=== PATIENT | female | born 1975 | race Hispanic/Latino ===

== ENCOUNTER 2017-06-16 14:42 | Emergency (ER) | payer BC, SELFPAY ==
[2017-06-16] MEDS ORDERED: ISOVUE-370 76%-LOCM 1 ML ONE (16:19)
[2017-06-16] MEDS ORDERED: Ketorolac Tromethamine 60 MG/2 ML VIAL ONE (18:20)
[2017-06-16] MEDS ORDERED: Clindamycin/D5W 900 mg/50 ml Premix Bag ONE (18:54)
[2017-06-16 19:11] LABS: #Eosinphils 0.3 thou/uL (0.0-0.7); #Lymphocytes 2.2 thou/uL (1.20-3.40); #Monocytes 0.9 thou/uL (0.11-0.59); %Basophils 0.2 % (0.0-1.0); %Eosinophils 3.3 % (0.0-10.0); %Lymphocytes 26.7 % (21.0-51.0); %Monocytes 10.4 % (0.0-10.0); Mean Platelet Volume 11.7 fL (7.4-10.4); White Blood Cell (WBC) Count 8.3 thou/uL (4.8-10.8)
[2017-06-16 19:27] LABS: ALT (SGPT) 18 U/L (8-55); AST (SGOT) 25 U/L (5-34); Alkaline Phosphatase 84 U/L (40-150); Anion Gap 16 mmol/L (10-20); BUN (Urea Nitrogen) 12 mg/dL (7.0-18.7); Bilirubin, Total 0.3 mg/dL (0.2-1.2); Calc. Creatinine Clearance 0 mL/min (70-130); Calcium 8.6 mg/dL (7.8-10.44); Carbon Dioxide 20 mmol/L (22-29); Chloride 106 mmol/L (98-107); Estimated GFR-MDRD Greater than 90; Globulin 4.3 g/dL (2.4-3.5); Protein, Total 7.9 g/dL (6.0-8.3)
[2017-06-16 19:31] LABS: Anisocytosis SLIGHT = 6-15 cells (100X) (0-5/hpf); Elliptocytes SLIGHT = 2-5 cells (100X) (0-1/hpf); Hypochromia SLIGHT = 6-15 cells (100X) (0-5/hpf); Microcytosis MODERATE=15-30 cells (100X) (0-5/hpf); Ovalocytes SLIGHT = 2-5 cells (100X) (0-1/hpf); Polychromasia SLIGHT = 2-3 cells (100X) (0-2/hpf); Target Cells SLIGHT = 2-5 cells (100X) (0-1/hpf)
--- NOTE | 2017-06-16 20:15 | CT ---
CT OF THE FACE WITH IV CONTRAST 06/16/17 INDICATION: Upper dental pain with right upper jaw and facial swelling for 24 hours. History of "bad teeth" with inability to receive dental care due to monetary reasons. FINDINGS: No drainable fluid collection is evident. There is periorbital soft tissue swelling that is presepta l in nature. The post septal retro-orbital fat is normal appearing. The globe is intact. The extraoc ular muscles appear within normal limits. There is soft tissue swelling involving the right cheek as well as the right upper lip. There is periodontal lucency involving both paracentral incisors suspi cious for periodontal disease. There is extensive dental caries suspected involving the molars of th e maxilla as well as the mandibular region. There are mucous retention cysts within both maxillary s inuses. Ethmoid air cells are clear. Frontal sinuses are clear. Mastoid air cells are clear. The vis ualized intracranial contents appear within normal limits. Certified Physician Assistant space, parapharyngeal space ap pears within normal limits. IMPRESSION: 1. Right periorbital and right facial cellulitis without evidence of a drainable fluid collecti on. 2. No post septal enhancement is evident to suggest retro-orbital cellulitis. 3. Extensive dental caries of the teeth of the maxilla and mandible. 4. Mild paranasal sinus disease. POS: [facility]
== END 2017-06-16 20:06 | disposition home or self-care (01) ==
LOC: ERS 14:42
DX: L03.213 Periorbital cellulitis (principal); K02.9 Dental caries, unspecified; K03.81 Cracked tooth
CPT/HCPCS: 36415; 70487; 80053; 85025; 87040; 96365; 96372; J1885; J3490

== ENCOUNTER 2017-08-22 05:17 | Emergency (ER) | payer BC, SELFPAY ==
[2017-08-22] MEDS ORDERED: Ibuprofen 800 MG TAB ONE (05:32)
[2017-08-22] MEDS ORDERED: Albuterol Sulfate 2.5 mg/3 ml Neb ONE (05:35)
[2017-08-22] MEDS ORDERED: Albuterol Sulfate 2.5 mg/0.5 ml Neb ONE (05:35)
--- NOTE | 2017-08-22 07:43 | RAD ---
PA AND LATERAL OF THE CHEST: INDICATION: Cough and congestion for 1 week without fever. COMPARISON: Prior exam dated 09/20/16. FINDINGS: Lungs are clear. Cardiomediastinal silhouette is normal. No acute osseous abnormality is evident. IMPRESSION: No acute cardiopulmonary abnormality. POS: [facility]
== END 2017-08-22 06:26 | disposition home or self-care (01) ==
LOC: ERS 05:17
DX: J06.9 Acute upper respiratory infection, unspecified (principal); R06.2 Wheezing
CPT/HCPCS: 71046; 94640; J7611

== ENCOUNTER 2017-10-10 08:05 | Emergency (ER) | payer BC | END 2017-10-10 08:58 | disposition home or self-care (01) | LOC: ERS 08:05 | DX: K02.9 Dental caries, unspecified (principal) | CPT/HCPCS: 99282 ==

== ENCOUNTER 2019-04-24 06:46 | Emergency (ER) | payer BC | END 2019-04-24 07:49 | disposition home or self-care (01) | LOC: ERS 06:46 | DX: R05 Cough (principal); R09.81 Nasal congestion; R50.9 Fever, unspecified; F17.210 Nicotine dependence, cigarettes, uncomplicated | CPT/HCPCS: 87804; 99283 ==

== ENCOUNTER 2019-07-25 12:55 | Emergency (ER) | payer BC, SELFPAY ==
--- NOTE | 2019-07-25 13:37 | RAD ---
Exam:3 views right ankle HISTORY: Injury. Pain. COMPARISON: None FINDINGS: Lateral soft tissue swelling. Joint spaces are preserved. No fracture. IMPRESSION: Soft tissue swelling, without evidence of fracture
== END 2019-07-25 15:00 | disposition home or self-care (01) ==
LOC: ERS 12:55
DX: S93.401A Sprain of unspecified ligament of right ankle, initial encounter (principal); F17.210 Nicotine dependence, cigarettes, uncomplicated; Z79.51 Long term (current) use of inhaled steroids; W01.0XXA Fall on same level from slipping, tripping and stumbling without subsequent striking against object, initial encounter

== ENCOUNTER 2020-12-05 04:20 | Emergency (ER) | payer BC, SELFPAY ==
[2020-12-05 11:37] LABS: SARS-CoV-2 PCR by NAA Not Detected (NotDetected)
== END 2020-12-05 06:10 | disposition home or self-care (01) ==
LOC: ERS 04:20
DX: B34.9 Viral infection, unspecified (principal); Z20.822 Contact with and (suspected) exposure to COVID-19; F17.210 Nicotine dependence, cigarettes, uncomplicated
CPT/HCPCS: 87635; 99283; U0003; U0005

== ENCOUNTER 2020-12-08 08:25 | Emergency (ER) | payer BC | END 2020-12-08 08:57 | disposition home or self-care (01) | LOC: ERS 08:25 | DX: L03.211 Cellulitis of face (principal); K02.9 Dental caries, unspecified; K03.81 Cracked tooth; F17.210 Nicotine dependence, cigarettes, uncomplicated | CPT/HCPCS: 99283 ==

== ENCOUNTER 2021-04-21 15:18 | Emergency (ER) | payer BC ==
[~2021-04-21 15:18] MED LIST: Iopamidol-370 76% 500 ML 1 ML ONE
[2021-04-21 15:37] LABS: #Eosinphils 0.1 thou/uL (0.0-0.7); #Lymphocytes 1.8 thou/uL (1.20-3.40); #Monocytes 0.5 thou/uL (0.11-0.59); #Neutrophils 5.4 thou/uL (1.40-6.50); %Basophils 0.2 % (0.0-1.0); %Lymphocytes 23.5 % (21.0-51.0); %Monocytes 5.9 % (0.0-10.0); %Neutrophils 69.5 % (42.0-75.0); Hemoglobin 10.4 g/dL (12.0-16.0); Mean Corpuscular Hemoglobin 22.2 pg (27.0-31.0); Mean Corpuscular Volume 69.3 fL (78.0-98.0); Platelet Count 295 thou/uL (130-400); Red Blood Cell (RBC) Count 4.69 mill/uL (4.20-5.40); White Blood Cell (WBC) Count 7.8 thou/uL (4.8-10.8)
[2021-04-21 15:47] LABS: Prothrombin Time 12.8 sec (12.0-14.7)
[2021-04-21 15:57] LABS: ALT (SGPT) 19 U/L (8-55); AST (SGOT) 17 U/L (5-34); Albumin 3.7 g/dL (3.5-5.0); Alkaline Phosphatase 95 U/L (40-110); Anion Gap 15 mmol/L (10-20); BUN (Urea Nitrogen) 15 mg/dL (7.0-18.7); Bilirubin, Total 0.3 mg/dL (0.2-1.2); Calc. Creatinine Clearance 0 mL/min (70-130); Calcium 9.6 mg/dL (7.8-10.44); Carbon Dioxide 21 mmol/L (22-29); Chloride 110 mmol/L (98-107); Globulin 3.6 g/dL (2.4-3.5); Glucose 122 mg/dL (70-105); Potassium 3.5 mmol/L (3.5-5.1); Protein, Total 7.3 g/dL (6.0-8.3); Sodium 142 mmol/L (136-145)
[2021-04-21 15:59] LABS: Anisocytosis SLIGHT = 6-15 cells (100X) (0-5/hpf); Hypochromia SLIGHT = 6-15 cells (100X) (0-5/hpf); MDiff Complete? YES; Microcytosis SLIGHT = 6-15 cells (100X) (0-5/hpf); Platelet Morphology Comment Appears Adequate; Polychromasia SLIGHT = 2-3 cells (100X) (0-2/hpf)
[2021-04-21 17:02] LABS: Amphetamine Detected (NotDetected); Barbiturates Screen Not Detected (NotDetected); Benzodiazepine Screen Not Detected (NotDetected); Cocaine Metabolite Screen Not Detected (NotDetected); Methadone Not Detected (NotDetected); Methamphetamine Detected (NotDetected); Opiate Screen Not Detected (NotDetected); Oxycodone Screen Not Detected (NotDetected); Phencyclidine (PCP) Not Detected (NotDetected); THC/Cannabinoid Screen Not Detected (NotDetected); Tricyclic Screen Not Detected (NotDetected)
[2021-04-21] MEDS ORDERED: Acetaminophen 500 MG TAB ONE (21:09)
== END 2021-04-21 16:39 | disposition left against medical advice (07) ==
LOC: ERS 15:18
DX: Z53.21 Procedure and treatment not carried out due to patient leaving prior to being seen by health care provider (principal)
CPT/HCPCS: 70450; 70496; 70498; 71045; 80053; 80306; 84484; 85025; 85610; 85730; 93005

== ENCOUNTER 2021-04-21 17:15 | Emergency (ER) | payer BC ==
[2021-04-21 19:01] LABS: #Eosinphils 0.1 thou/uL (0.0-0.7); #Lymphocytes 1.5 thou/uL (1.20-3.40); #Monocytes 0.6 thou/uL (0.11-0.59); #Neutrophils 4.9 thou/uL (1.40-6.50); %Basophils 0.3 % (0.0-1.0); %Eosinophils 1.1 % (0.0-10.0); %Lymphocytes 21.4 % (21.0-51.0); %Neutrophils 69.3 % (42.0-75.0); Hemoglobin 9.4 g/dL (12.0-16.0); Mean Corpuscular HGB CONC 32.1 g/dL (32.0-36.0); Mean Corpuscular Hemoglobin 22.2 pg (27.0-31.0); Mean Platelet Volume 10.4 fL (7.4-10.4); Platelet Count 257 thou/uL (130-400); RBC Distribution Width 18.1 % (11.5-14.5); Red Blood Cell (RBC) Count 4.25 mill/uL (4.20-5.40); White Blood Cell (WBC) Count 7.1 thou/uL (4.8-10.8)
[2021-04-21 19:27] LABS: ALT (SGPT) 19 U/L (8-55); AST (SGOT) 16 U/L (5-34); Albumin 3.4 g/dL (3.5-5.0); Alkaline Phosphatase 80 U/L (40-110); Anion Gap 11 mmol/L (10-20); BUN (Urea Nitrogen) 16 mg/dL (7.0-18.7); Bilirubin, Total 0.2 mg/dL (0.2-1.2); Calc. Creatinine Clearance 0 mL/min (70-130); Calcium 8.8 mg/dL (7.8-10.44); Carbon Dioxide 22 mmol/L (22-29); Chloride 109 mmol/L (98-107); Globulin 3.2 g/dL (2.4-3.5); Glucose 102 mg/dL (70-105); Potassium 3.6 mmol/L (3.5-5.1); Protein, Total 6.6 g/dL (6.0-8.3); Sodium 138 mmol/L (136-145)
== END 2021-04-21 21:27 | disposition home or self-care (01) ==
LOC: ERS 17:15 → EEVIPCON 17:15 → ERS 21:27
DX: F15.10 Other stimulant abuse, uncomplicated (principal); F98.5 Adult onset fluency disorder; D64.9 Anemia, unspecified; M10.9 Gout, unspecified; R47.1 Dysarthria and anarthria
CPT/HCPCS: 36415; 70450; 70496; 70498; 71045; 80053; 80306; 84484; 85025; 85610; 85730; 93005

== ENCOUNTER 2021-08-26 12:01 | Emergency (ER) | payer BC ==
[2021-08-27 09:51] LABS: SARS-CoV-2 PCR by NAA Not Detected (NotDetected)
== END 2021-08-26 13:59 | disposition home or self-care (01) ==
LOC: ERS 12:01
DX: R05.9 Cough, unspecified (principal); R09.81 Nasal congestion; Z20.822 Contact with and (suspected) exposure to COVID-19
CPT/HCPCS: 99283; U0003; U0005

== ENCOUNTER 2022-03-10 04:40 | Emergency (ER) | payer BC ==
[2022-03-10] MEDS ORDERED: Ketorolac Tromethamine 30 MG/ML VIAL ONE (06:25)
[2022-03-10 07:09] LABS: #Eosinphils 0.1 thou/uL (0.0-0.7); #Monocytes 0.7 thou/uL (0.11-0.59); #Neutrophils 5.3 thou/uL (1.40-6.50); %Basophils 0.2 % (0.0-1.0); %Eosinophils 0.6 % (0.0-10.0); %Monocytes 8.9 % (0.0-10.0); %Neutrophils 65.4 % (42.0-75.0); Hemoglobin 9.6 g/dL (12.0-16.0); Mean Corpuscular HGB CONC 31.2 g/dL (32.0-36.0); Mean Corpuscular Volume 70.6 fL (78.0-98.0); Mean Platelet Volume 9.5 fL (7.4-10.4); Platelet Count 248 thou/uL (130-400); RBC Distribution Width 17.8 % (11.5-14.5); Red Blood Cell (RBC) Count 4.36 mill/uL (4.20-5.40); White Blood Cell (WBC) Count 8.1 thou/uL (4.8-10.8)
[2022-03-10 07:17] LABS: ALT (SGPT) 12 U/L (8-55); AST (SGOT) 16 U/L (5-34); Albumin 3.9 g/dL (3.5-5.0); Alkaline Phosphatase 63 U/L (40-110); Anion Gap 11 mmol/L (10-20); BUN (Urea Nitrogen) 18 mg/dL (7.0-18.7); Bilirubin, Total 0.3 mg/dL (0.2-1.2); Calc. Creatinine Clearance 0 mL/min (70-130); Calcium 8.8 mg/dL (7.8-10.44); Carbon Dioxide 26 mmol/L (22-29); Chloride 104 mmol/L (98-107); Estimated GFR 102; Globulin 3.6 g/dL (2.4-3.5); Glucose 111 mg/dL (70-105); Potassium 4.1 mmol/L (3.5-5.1); Protein, Total 7.5 g/dL (6.0-8.3); Sodium 137 mmol/L (136-145)
[2022-03-10 08:11] LABS: Hypochromia SLIGHT = 6-15 cells (100X) (0-5/hpf); MDiff Complete? YES; Microcytosis MODERATE=15-30 cells (100X) (0-5/hpf); Platelet Morphology Comment Appears Adequate; Polychromasia SLIGHT = 2-3 cells (100X) (0-2/hpf)
== END 2022-03-10 07:42 | disposition home or self-care (01) ==
LOC: ERS 04:40
DX: D64.9 Anemia, unspecified (principal); M06.9 Rheumatoid arthritis, unspecified
CPT/HCPCS: 36415; 80053; 85025; 96372; 99284; J1885

== ENCOUNTER 2022-04-29 16:40 | Emergency (ER) | payer BC ==
[2022-04-29] MEDS ORDERED: Ketorolac Tromethamine 30 MG/ML VIAL ONE (18:12)
[2022-04-29] MEDS ORDERED: Acetaminophen 500 MG TAB ONE (18:12)
[2022-04-29] MEDS ORDERED: Cyclobenzaprine 10 MG TAB ONE (18:12)
[2022-04-29] MEDS ORDERED: methylPREDNISolone Sod Succ/PF 125 MG/2 ML VIAL ONE (18:16)
== END 2022-04-29 19:20 | disposition home or self-care (01) ==
LOC: ERS 16:40
DX: M50.123 Cervical disc disorder at C6-C7 level with radiculopathy (principal); M47.22 Other spondylosis with radiculopathy, cervical region; F17.210 Nicotine dependence, cigarettes, uncomplicated
CPT/HCPCS: 72125; 96372; J1885; J2930

== ENCOUNTER 2025-06-20 15:31 | Emergency (ER) | payer BC, SELFPAY ==
[2025-06-20 16:38] LABS: #Basophils 0.04 10x3/uL (0.0-0.2); #Eosinophils 0.12 10x3/uL (0.0-0.7); #Monocytes 0.42 10x3/uL (0.11-0.59); #Neutrophils 4.46 10x3/uL (1.40-6.50); %Basophils 0.6 % (0.0-1.0); %Eosinophils 1.7 % (0.0-10.0); %Lymphocytes 29.9 % (21.0-51.0); %Monocytes 5.8 % (0.0-10.0); %Neutrophils 61.9 % (42.0-75.0); Hematocrit 34.5 % (36.0-47.0); Hemoglobin 10.9 g/dL (12.0-16.0); Mean Corpuscular Hemoglobin 26.9 pg (27.0-31.0); Mean Corpuscular Volume 85.2 fL (78.0-98.0); Platelet Count 271 10x3/uL (130-400); Red Blood Cell (RBC) Count 4.05 mill/uL (4.20-5.40); White Blood Cell (WBC) Count 7.20 10x3/uL (4.8-10.8)
[2025-06-20 17:00] LABS: ALT (SGPT) 12 U/L (Less than 34); AST (SGOT) 26 U/L (11-34); Albumin 4.1 g/dL (3.1-4.5); Alkaline Phosphatase 92 U/L (40-110); Anion Gap 14 mmol/L (10-20); BUN (Urea Nitrogen) 16 mg/dL (7.0-18.7); Bilirubin, Total 0.2 mg/dL (0.3-1.2); Calc. Creatinine Clearance 0 mL/min (70-130); Calcium 9.6 mg/dL (7.8-10.44); Carbon Dioxide 24 mmol/L (22-29); Chloride 107 mmol/L (98-107); Globulin 3.9 g/dL (2.4-3.5); Glucose 96 mg/dL (70-105); Potassium 3.5 mmol/L (3.5-5.1); Sodium 141 mmol/L (136-145)
== END 2025-06-20 17:30 | disposition home or self-care (01) ==
LOC: ERS 15:31
DX: I10 Essential (primary) hypertension (principal); F41.9 Anxiety disorder, unspecified
CPT/HCPCS: 71045; 80053; 83605; 84484; 85025; 93005

== ENCOUNTER 2025-07-24 00:55 | Emergency (ER) | payer OTHER, SELFPAY | END 2025-07-24 04:00 | disposition left against medical advice (07) | LOC: ERS 00:55 | DX: M79.641 Pain in right hand (principal); M79.642 Pain in left hand; M79.661 Pain in right lower leg; M79.662 Pain in left lower leg; Z53.21 Procedure and treatment not carried out due to patient leaving prior to being seen by health care provider; I10 Essential (primary) hypertension; F41.9 Anxiety disorder, unspecified; G62.9 Polyneuropathy, unspecified | CPT/HCPCS: 99282 ==

== ENCOUNTER 2025-08-13 09:50 | Emergency (ER) | payer OTHER ==
[2025-08-13 10:12] LABS: #Basophils 0.04 10x3/uL (0.0-0.2); #Eosinophils Less than 0.03 10x3/uL (0.0-0.7); #Monocytes 0.48 10x3/uL (0.11-0.59); #Neutrophils 10.00 10x3/uL (1.40-6.50); %Basophils 0.4 % (0.0-1.0); %Eosinophils 0.1 % (0.0-10.0); %Lymphocytes 5.3 % (21.0-51.0); %Monocytes 4.3 % (0.0-10.0); %Neutrophils 88.8 % (42.0-75.0); Hematocrit 31.5 % (36.0-47.0); Hemoglobin 10.1 g/dL (12.0-16.0); Mean Corpuscular Hemoglobin 27.4 pg (27.0-31.0); Mean Corpuscular Volume 85.4 fL (78.0-98.0); Platelet Count 271 10x3/uL (130-400); Red Blood Cell (RBC) Count 3.69 mill/uL (4.20-5.40); White Blood Cell (WBC) Count 11.25 10x3/uL (4.8-10.8)
[2025-08-13 10:27] LABS: Acetaminophen Less than 10 mcg/mL (Less than 10); Salicylate Less than 8.0 mg/dL (Less than 8.0)
[2025-08-13 10:28] LABS: ALT (SGPT) 12 U/L (Less than 34); AST (SGOT) 22 U/L (11-34); Albumin 3.6 g/dL (3.1-4.5); Alkaline Phosphatase 105 U/L (40-110); Anion Gap 19 mmol/L (10-20); BUN (Urea Nitrogen) 11 mg/dL (7.0-18.7); Bilirubin, Total 0.1 mg/dL (0.3-1.2); Calc. Creatinine Clearance 0 mL/min (70-130); Calcium 8.7 mg/dL (7.8-10.44); Carbon Dioxide 15 mmol/L (22-29); Chloride 110 mmol/L (98-107); Globulin 3.3 g/dL (2.4-3.5); Glucose 187 mg/dL (70-105); Potassium 3.3 mmol/L (3.5-5.1); Sodium 141 mmol/L (136-145)
[2025-08-13 10:34] LABS: Bacteria/HPF None Seen HPF (None Seen); CAUTI Indications for Culture Dysuria,urgency,freq; Glucose, Urine (Dipstick) 50 mg/dL (Negative); Leukocyte Negative Leu/uL (Negative); Protein, Urine (Dipstick) 30 mg/dL (Neg-Trace); RBC/HPF 0-3 HPF (0-3); Specific Gravity, Urine 1.021 (1.002-1.036); WBC/HPF 0-3 HPF (0-3)
[2025-08-13 10:35] LABS: Urine Culture Reflex No No
[2025-08-13 10:36] LABS: Cocaine Metabolite Screen Negative (Negative); THC/Cannabinoid Screen Negative (Negative); Tricyclic Screen Negative (Negative)
== END 2025-08-13 16:40 | disposition home or self-care (01) ==
LOC: ERS 09:50
DX: F15.10 Other stimulant abuse, uncomplicated (principal); F13.10 Sedative, hypnotic or anxiolytic abuse, uncomplicated; I10 Essential (primary) hypertension; D72.829 Elevated white blood cell count, unspecified; E87.6 Hypokalemia
CPT/HCPCS: 51701; 70450; 80306; 80307; 81001; 84146; 93005; 94760; 95819; 96374; 96376; J3360